=== PATIENT | male | born 1950 | race Caucasian/White ===

== ENCOUNTER 2022-11-09 06:57 | Outpatient (CLI) | payer MEDICARE | END 2022-11-09 06:58 | disposition home or self-care (01) | LOC: NM 06:57 | PROVIDERS: ATTEND Psychiatry & Neurology Neurology | DX: T50.905A Adverse effect of unspecified drugs, medicaments and biological substances, initial encounter (principal); G25.89 Other specified extrapyramidal and movement disorders; G20 Parkinson's disease | CPT/HCPCS: 78803; A9584 ×2 ==